=== PATIENT | female | born 1970 | race Caucasian/White ===

== ENCOUNTER 2017-03-27 13:49 | Emergency (ER) | payer OTHER ==
[2017-03-27 14:04] VITALS: BP 114/69; PULSE 75; TEMP 97.9; BMI 21.4
--- NOTE | 2017-03-27 14:05 | PDOC ---
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 It was everted and stuck in a treadmill. Since that time she has had ongoing foot pain. She is able to ambulate. The pain is mild and dull. - Physicial Exam PE: 03/27/17 14:05 She is well appearing She has diffuse soft tissue tenderness over the the medial midfoot as well as in the distribution of the talofibular ligament She has no pain with axial loading No pain with dosal compression or lateral compression There is no bony tenderness 03/27/17 14:05 03/27/17 14:09 03/27/17 14:09 - Medical Decision Making 03/27/17 14:09 I have a low suspicion for bony injury Given duration of the symptoms will Xray 03/27/17 14:55 X ray noted: possible avulsion fracture of woo lateral malleolus She has no tenderness at that area It mjay be an old finding Clinical impression: Ankle sprain Possible avulsion fracture of lateral malleolus Will refer to orthopedic surgery for further evaluation I discussed the physical exam findings, ancillary test results and final diagnoses with the patient. I answered all of the patient's questions. The patient was satisfied with the care received and felt comfortable with the discharge plan and treatment plan. The patient will call their primary care physician within 24 hours to arrange follow-up and will return to the Emergency Department with any new, persistent or worsening symptoms.
--- NOTE | 2017-03-27 14:32 | PDOC ---
History of Present Illness - General Chief Complaint: Pain, Acute Stated Complaint: LEFT FOOT PAIN Time Seen by Provider: 03/27/17 13:52 History Source: Patient Exam Limitations: No Limitations - History of Present Illness Initial Comments: 46 y/o F with sig PMH of spinal tumor (with resection in 1989 and residual L sided LE weakness) presents to ER with pain in L foot for 3 weeks. Pt had caught her L foot in an exercise machine in everted position and fell without any trauma 3 weeks ago at home. Foot was caught in machine for 20 minutes before was able to come and help her free her foot from the machine. Pain is located in medial aspect of midfoot. Pt had pain and had difficulty bearing weight on L foot. Pt noted that her L foot had become swollen but did not notice any bruising anywhere on her foot nor did she hear any pops. Pain and swelling has improved slightly over last 3 weeks but she still notes that there is swelling. She has been taking approximately 400 mg ibuprofen per day for the last 3 weeks with food with no relief. Pt denies CP, SOB, abd pain, MEJIA, N/V/F/C. Past History - Past Medical History Allergies/Adverse Reactions: Allergies Allergy/AdvReac Type Severity Reaction Status Date / Time No Known Allergies Allergy Verified 03/27/17 13:50 Other medical history: SPINAL TUMORN 1989 - Psycho/Social/Smoking Cessation Hx Anxiety: No Suicidal Ideation: No Smoking Status: Yes Smoking History: Former smoker Have you smoked in the past 12 months: No Number of Cigarettes Smoked Daily: 4 Information on smoking cessation initiated: No Hx Alcohol Use: Yes (SOCIAL) Drug/Substance Use Hx: No Substance Use Type: Alcohol Review of Systems - Review of Systems Comments:: CONSTITUTIONAL: Absent: fever, chills, generalized weakness CARDIOVASCULAR: Absent: chest pain, syncope, palpitations, irregular heart rate , lightheadedness, peripheral edema RESPIRATORY: Absent: cough, shortness of breath, dyspnea with exertion GASTROINTESTINAL:Absent: abdominal pain, nausea, vomiting, diarrhea, constipation MUSCULOSKELETAL:+L foot pain and swelling Absent: myalgia, arthralgia ENDOCRINE:Absent: unexplained weight gain, unexplained weight loss, heat intolerance, cold intolerance NEUROLOGIC: Absent: headache, focal weakness or paresthesias, dizziness, unsteady gait, seizure, mental status changes PSYCHIATRIC: Absent: anxiety, depression, suicidal or homicidal ideation, hallucinations *Physical Exam - Vital Signs Last Vital Signs Temp Pulse Resp BP Pulse Ox 97.9 F 75 16 114/69 96 03/27/17 13:50 03/27/17 13:50 03/27/17 13:50 03/27/17 13:50 03/27/17 13:50 - Physical Exam Comments: GENERAL: Well-appearing, well-nourished. No apparent distress. HEENT: Normocephalic, atraumatic. EOM intact. CARDIOVASCULAR: Normal S1, S2. Regular rate and rhythm. PULMONARY: Clear to auscultation bilaterally. ABDOMEN: Soft, non-distended, non-tender. EXTREMITIES: L arm weakness (chronic) L foot pain in medial aspect of foot. Pain with eversion and dorsiflexion of foot. Swelling of L foot compared to R. No pain with axial loading. No bony tenderness. SKIN: Warm, dry. No rash NEUROLOGICAL: No focal neurological deficits. 03/27/17 14:40 Medical Decision Making - Medical Decision Making 46 y/o F with sig PMH of spinal tumor (with resection in 1989 and residual L sided LE weakness) presents to ER with pain in L foot for 3 weeks. Pt had caught her L foot in an exercise machine in everted position and fell without any trauma 3 weeks ago at home. Foot was caught in machine for 20 minutes before was able to come and help her free her foot from the machine. Pain is located in medial aspect of midfoot. 03/27/17 14:40 Pt has no axial loading tenderness or bony tenderness. Pain with lateral compression. Will get L foot and ankle XR. 03/27/17 14:49 Foot and ankle XR shows: questionable curved calcification or avulsion by lateral malleolus. Pt is to f/u with PCP and Ortho (Dr. Soto) for further assessment of her foot. Will likely need an MRI to assess her foot which she can f/u with ortho. *DC/Admit/Observation/Transfer Diagnosis at time of Disposition: Ankle sprain Qualifiers: Encounter type: initial encounter Involved ligament of ankle: unspecified ligament Laterality: right Qualified Code(s): S93.401A - Sprain of unspecified ligament of right ankle, initial encounter - Discharge Dispostion Disposition: HOME Condition at time of disposition: Stable - Referrals Referrals: Demetri Soto MD [Staff Physician] - - Patient Instructions Printed Discharge Instructions: DI for Ankle Sprain, DI for Foot Pain Additional Instructions: Follow up with your primary care physician. Your left foot and ankle x-ray did not show any fractures. You may need an MRI and you can follow up with an orthopedic surgeon to assess for your foot further. You can see Dr. Soto for orthopedics. If your symptoms worsen please come back to the emergency room.
== END 2017-03-27 14:57 | disposition home or self-care (01) ==
LOC: FER 13:49
DX: S93.401A Sprain of unspecified ligament of right ankle, initial encounter (principal); W23.0XXA Caught, crushed, jammed, or pinched between moving objects, initial encounter; Y93.A1 Activity, exercise machines primarily for cardiorespiratory conditioning; Y92.89 Other specified places as the place of occurrence of the external cause; Z87.891 Personal history of nicotine dependence
CPT/HCPCS: 73610-TC-LT; 73630-TC-LT; 99282-25

== ENCOUNTER 2019-06-14 09:24 | Day surgery (SDC) | payer OTHER | END 2019-06-14 15:19 | disposition home or self-care (01) | LOC: JASU-ENDO 09:24 ==

== ENCOUNTER 2023-11-25 19:54 | Emergency (ER) | payer OTHER ==
[2023-11-25 20:52] VITALS: BP 92/54; PULSE 80; RESP 16; TEMP 98.7; BMI 21.6
[2023-11-25] MEDS ORDERED: ACETAMINOPHEN 325 MG TABLET (FP) PO ONE (20:59)
[2023-11-25] MEDS ORDERED: ACETAMINOPHEN 325 MG TABLET (FP) ONE (21:01)
== END 2023-11-25 21:51 | disposition home or self-care (01) ==
LOC: FER 19:54
DX: S00.93XA Contusion of unspecified part of head, initial encounter (principal); S30.0XXA Contusion of lower back and pelvis, initial encounter; W18.39XA Other fall on same level, initial encounter
CPT/HCPCS: 70450-TC; 72170-TC-FY; 99284-25

== ENCOUNTER 2023-11-30 18:39 | Emergency (ER) | payer OTHER ==
[2023-11-30 18:58] VITALS: BP 116/67; PULSE 90; RESP 16; TEMP 98.3; BMI 21.6
== END 2023-11-30 21:02 | disposition home or self-care (01) ==
LOC: FER 18:39
DX: R07.81 Pleurodynia (principal); S20.211A Contusion of right front wall of thorax, initial encounter; X58.XXXA Exposure to other specified factors, initial encounter
CPT/HCPCS: 71101-TC-RT-FY; 99283-25